=== PATIENT | male | born 1975 | race Two or more races ===

== ENCOUNTER 2016-10-03 05:27 | Emergency (ER) | payer OTHER ==
[2016-10-03 05:36] VITALS: BP 128/83; TEMP 98.6; BMI 37.2
--- NOTE | 2016-10-03 05:43 | PDOC ---
History of Present Illness - General Chief Complaint: Cold Symptoms Stated Complaint: CHILLS, NAUSEA, BODY ACHES Time Seen by Provider: 10/03/16 05:42 History Source: Patient Exam Limitations: No Limitations - History of Present Illness Initial Comments: 10/03/16 05:47 This is a 41-year-old male who comes in complaining of headache, was the body aches and fever. Patient said he has had symptoms for 2 days. Patient took ibuprofen prior to coming in and by the time he got here his fever had resolved. Patient also complaining of some sore throat and mild congestion. Patient is otherwise healthy. PAST MEDICAL HISTORY: no significant history PAST SURGICAL HISTORY: no significant history FAMILY HISTORY: no pertinant history SOCIAL HISTORY: Pt lives with family and is employed. MEDICATIONS: reviewed ALLERGIES: As per nursing notes Review of Systems General: + fevers + chills, no weakness, no weight loss HEENT: No change in vision. + sore throat,. No ear pain CardioVascular: No chest pain or shortness of breath Respiratory:No cough, or wheezing. Gastrointestinal: no nausea, vomitting, diarrhea or constipation, No rectal bleeding Genitourinary: No dysuria, hematuria, or frequency Musculoskeletal: No joint or muscle pain or swelling Neurologic: No headache, vertigo, dizziness or loss of consciousness Psychiatric: nor depression Skin: No rashes or easy bruising Endocrine: no increased thirst or abnormal weight change Allergic: no skin or latex allergy All other systems reviewed and normal Exam: General: Well-nourished well-developed individual, no acute distress HEENT: Throat: tonsils normal, erythema posterior oropharynx no exudate Neck: Supple, no meningeal signs, no lymphadenopathy Eyes::Pupils equal reactive and round, extraocular motion intact Chest: Nontender to palpation Cardiac: S1-S2 normal, regular rate and rhythm, no murmurs rubs or gallops Respiratory: Lungs clear to auscultation bilateral Abdomen: Soft, nondistended, normal bowel sounds, nontender to palpation diffusely Extremities: Warm, dry, no cyanosis, clubbing, or edema Skin: No rashes Neuro: Alert and oriented x3, nonfocal exam, grossly intact, normal gait Psych: Normal mood and affect Assessment and plan: This is a 41-year-old male who comes in complaining of 2 days of respiratory tract type symptoms. Patient had chills prior to coming in but took some ibuprofen and the time he got here his fever has broke and his temperature was normal. Patient was given a shot of Toradol for his headache. Patient had no meningeal signs and was reassured that his symptoms are viral. Patient told to alternate acetaminophen with Tylenol every 3 hours if needed for fevers and follow up with his doctor on Wednesday10/03/16 05:56 Past History - Past Medical History Allergies/Adverse Reactions: Allergies Allergy/AdvReac Type Severity Reaction Status Date / Time No Known Allergies Allergy Unverified 02/19/12 20:12 Home Medications: Ambulatory Orders NK [No Known Home Medication] 10/03/16 HTN: Yes Hypercholesterolemia: Yes - Immunization History TDAP Vaccination: No - Psycho/Social/Smoking Cessation Hx Anxiety: No Suicidal Ideation: No Smoking Status: No Smoking History: Never smoked Number of Cigarettes Smoked Daily: 0 *Physical Exam - Vital Signs Last Vital Signs Temp Pulse Resp BP Pulse Ox 98.6 F 106 H 16 128/83 96 10/03/16 05:34 10/03/16 05:34 10/03/16 05:34 10/03/16 05:34 10/03/16 05:34 *DC/Admit/Observation/Transfer Diagnosis at time of Disposition: Viral illness - Discharge Dispostion Condition at time of disposition: Stable Admit: No - Patient Instructions Additional Instructions: Alternate acetaminophen 2 extra strength tablets with ibuprofen 3 tablets every 3 hours as needed for fevers. Get plenty of rest the next couple a days;\ If you still have a fever on Wednesday follow-up with your primary care doctor. Return to the emergency department immediately with ANY new, persistent or worsening symptoms. Continue any medications as previously prescribed by your physician. You should follow up with your primary doctor as soon as possible regarding today's emergency department visit. . Please make sure your doctor reviews the results of your emergency evaluation. Thank you for coming to the Emergency Department today for your care. It was a pleasure to see you today. Please note that your evaluation is INCOMPLETE until you follow-up with your doctor.
[2016-10-03] MEDS ORDERED: KETOROLAC TROMETHAMINE 60 MG/2 ML VIAL IM ONE (05:47)
[2016-10-03] MEDS ORDERED: KETOROLAC TROMETHAMINE 60 MG/2 ML VIAL ONE (05:47)
[2016-10-03 05:54] VITALS: PULSE 100
== END 2016-10-03 05:57 | disposition home or self-care (01) ==
LOC: FER 05:27
PROC: 3E0233Z Introduction of Anti-inflammatory into Muscle, Percutaneous Approach (ICD-10-PCS; principal; 2016-10-03)
DX: B34.9 Viral infection, unspecified (principal); I10 Essential (primary) hypertension; E78.00 Pure hypercholesterolemia, unspecified
CPT/HCPCS: 96372; 99281-25

== ENCOUNTER 2018-08-25 00:01 | Emergency (ER) | payer OTHER ==
[2018-08-25 00:09] VITALS: BP 138/94; PULSE 107; TEMP 97.9; BMI 34.7
[2018-08-25] MEDS ORDERED: KETOROLAC TROMETHAMINE 60 MG/2 ML VIAL IM ONE (00:30)
--- NOTE | 2018-08-25 00:42 | PDOC ---
History of Present Illness - General Chief Complaint: Injury Stated Complaint: S/P FALL-BACK PAIN Time Seen by Provider: 08/25/18 00:07 - History of Present Illness Initial Comments: 08/25/18 00:52 The patient is a 43 year old male, with a significant PMH of HTN, HLD , hypothyroidism presents to the emergency department with hx of falling at work about 5 hours prior to presentation. The patient describes pulling a very heavy piece of equipment on a ameena at his place of work this evening. The equipment fell off the ameena and the patient slid backward, striking his lower back/ buttocks on the floor. He was able to get up and ambulate after the fall but he has had increasing pain in lower back as well as soreness in upper back, right shoulder and bilateral rib cage since the injury. The patient denies chest pain, shortness of breath, headache and dizziness. Denies fever, chills, nausea, vomit, diarrhea and constipation. Denies dysuria, frequency, urgency and hematuria. Allergies: NKA Past surgical history: Left knee meniscal repair, [employer] s/p nephrectomy as a child(trauma) Social history: No smoking/alcohol use PCP:Dhara Past History - Past Medical History Allergies/Adverse Reactions: Allergies Allergy/AdvReac Type Severity Reaction Status Date / Time No Known Allergies Allergy Unverified 02/19/12 20:12 Home Medications: Ambulatory Orders NK [No Known Home Medication] 10/03/16 COPD: No HTN: Yes Hypercholesterolemia: Yes - Immunization History TDAP Vaccination: No - Suicide/Smoking/Psychosocial Hx Smoking Status: No Smoking History: Unknown if ever smoked Have you smoked in the past 12 months: No Number of Cigarettes Smoked Daily: 0 Information on smoking cessation initiated: No Hx Alcohol Use: No Drug/Substance Use Hx: No Review of Systems - Review of Systems Able to Perform ROS?: Yes Comments:: GENERAL/CONSTITUTIONAL: No fever or chills. No weakness. HEAD, EYES, EARS, NOSE AND THROAT: No change in vision. No ear pain or discharge. No sore throat. CARDIOVASCULAR: No chest pain or shortness of breath. RESPIRATORY: No cough, wheezing, or hemoptysis. GASTROINTESTINAL: No nausea, vomiting, diarrhea or constipation. GENITOURINARY: No dysuria, frequency, or change in urination. SKIN: No rash NEUROLOGIC: No headache, vertigo, loss of consciousness, or change in strength/ sensation. ENDOCRINE: No increased thirst. No abnormal weight change. HEMATOLOGIC/LYMPHATIC: No anemia, easy bleeding, or history of blood clots. ALLERGIC/IMMUNOLOGIC: No hives or skin allergy. *Physical Exam - Vital Signs Last Vital Signs Temp Pulse Resp BP Pulse Ox 97.9 F 107 H 15 138/94 99 08/25/18 00:06 08/25/18 00:06 08/25/18 00:08/25/18 00:08/25/18 00:06 - Physical Exam Comments: GENERAL: Awake, alert, and fully oriented, in no acute distress HEAD: No signs of trauma EYES: PERRLA, EOMI, sclera anicteric, conjunctiva clear ENT: Auricles normal inspection, hearing grossly normal, nares patent, oropharynx clear without exudates. Moist mucosa NECK: Normal ROM, supple, no lymphadenopathy, JVD, or masses LUNGS: Breath sounds equal, clear to auscultation bilaterally. No wheezes, and no crackles CHEST WALL:Mild tenderness to palpation bilateral lateral aspects; no stepoffs or crepitus HEART: Regular rate and rhythm, normal S1 and S2, no murmurs, rubs or gallops ABDOMEN: Soft, nontender, normoactive bowel sounds. No guarding, no rebound. No masses EXTREMITIES: Normal range of motion, no edema. No clubbing or cyanosis. No cords, erythema, or tenderness Mild tenderness to palpation right deltoid/biceps muscles without deformity; pain in shoulder with abduction>45 degrees No bony tenderness or deformity BACK:moderate tenderness to palpation midline L2 -L5 with defects; minimal tenderness to midline T1-T2 mild tenderness to palpation bilateral flanks NEUROLOGICAL: Cranial nerves II through XII grossly intact. Normal speech, normal gait SKIN: Warm, Dry, normal turgor, no rashes or lesions noted. Progress Note - Progress Note Progress Note: Lumbosacral xrays obtained to evaluate for acute bony injury. Preliminary interpretation by me: no evidence of fracture or dislocation. Meanwhile, Toradol 60mg IM had been given for analgesia/anti-inflammatory effects. The patient reports some relief of pain after Toradol. The patient was discharged with advice to avoid strenuous activity over the next several days. He can take ibuproefen with meals as needed(patient states that OTC ibuprofen is effective for him). He is already a patient of Dr Elliott, seen for previous lower back discomfort. He should followup with him within the next 5-7 days *DC/Admit/Observation/Transfer Diagnosis at time of Disposition: Lumbosacral strain Qualifiers: Encounter type: initial encounter Qualified Code(s): S39.012A - Strain of muscle, fascia and tendon of lower back, initial encounter Right shoulder strain Qualifiers: Encounter type: initial encounter Qualified Code(s): S46.911A - Strain of unspecified muscle, fascia and tendon at shoulder and upper arm level, right arm , initial encounter Chest wall muscle strain Qualifiers: Encounter type: initial encounter Qualified Code(s): S29.011A - Strain of muscle and tendon of front wall of thorax, initial encounter - Discharge Dispostion Disposition: HOME Condition at time of disposition: Stable - Referrals Referrals: Guerrero Elliott MD [Staff Physician] - 1 week - Patient Instructions Printed Discharge Instructions: DI for Low Back Pain Additional Instructions: rest; avoid strenuous activity for the next week after 24 hours, can apply local warmth to areas of pain Motrin as needed for pain(take with food) followup with Dr Elliott in 5-7 days, especially if you have persistent lower back pain return to ER if you have persistent severe pain - Post Discharge Activity
[2018-08-25] MEDS ORDERED: KETOROLAC TROMETHAMINE 60 MG/2 ML VIAL ONE (00:46)
== END 2018-08-25 02:23 | disposition home or self-care (01) ==
LOC: FER 00:01
PROC: 3E0233Z Introduction of Anti-inflammatory into Muscle, Percutaneous Approach (ICD-10-PCS; principal; 2018-08-25)
DX: S39.012A Strain of muscle, fascia and tendon of lower back, initial encounter (principal); S46.911A Strain of unspecified muscle, fascia and tendon at shoulder and upper arm level, right arm, initial encounter; S29.011A Strain of muscle and tendon of front wall of thorax, initial encounter; W18.39XA Other fall on same level, initial encounter; Y93.89 Activity, other specified; Y92.89 Other specified places as the place of occurrence of the external cause; Y99.0 Civilian activity done for income or pay; I10 Essential (primary) hypertension; E78.5 Hyperlipidemia, unspecified; E03.9 Hypothyroidism, unspecified
CPT/HCPCS: 72100-TC-FY; 99282-25

== ENCOUNTER 2021-01-14 20:45 | Emergency (ER) | payer OTHER ==
[2021-01-14 20:56] VITALS: BP 129/94; PULSE 110; TEMP 98.1; BMI 34.2
== END 2021-01-14 22:03 | disposition home or self-care (01) ==
LOC: FER 20:45
DX: K40.90 Unilateral inguinal hernia, without obstruction or gangrene, not specified as recurrent (principal)
CPT/HCPCS: 99283-25

== ENCOUNTER 2021-05-16 04:24 | Day surgery (SDC) | payer OTHER ==
[2021-05-09 13:34] VITALS: BMI 30.8
[2021-05-16] MEDS ORDERED: BUPIVACAINE HCL/PF 0.5% (5MG/ML) 10 ML VIAL ONE ×2 (10:14→11:08)
[2021-05-16] MEDS ORDERED: PROPOFOL 20 ML ONE (10:27)
[2021-05-16] MEDS ORDERED: MIDAZOLAM HCL 2 MG/2 ML SINGLE DOSE VIAL ONE (10:27)
[2021-05-16] MEDS ORDERED: SUCCINYLCHOLINE CHLORIDE 200 MG/10 ML SYRINGE ONE (10:27)
[2021-05-16] MEDS ORDERED: ROCURONIUM BROMIDE 50 MG/5 ML SYRINGE ONE ×2 (10:27→12:42)
[2021-05-16] MEDS ORDERED: ceFAZolin SODIUM 1 GM VIAL ONE (11:24)
[2021-05-16] MEDS ORDERED: ceFAZolin SODIUM 1 GM VIAL IVPB ONE (11:25)
[2021-05-16] MEDS ORDERED: BUPIVACAINE HCL/PF 0.5% (5 MG/ML) 30 ML VIAL IJ ONE ×2 (11:36)
[2021-05-16] MEDS ORDERED: DEXAMETHASONE SOD PHOSPHATE 4 MG/1 ML VIAL ONE (11:38)
[2021-05-16] MEDS ORDERED: HYDROmorphone HCl 2 MG/ML VIAL ONE (12:26)
[2021-05-16] MEDS ORDERED: DESFLURANE GAS 240 ML BOTTLE IH ONE (13:30)
[2021-05-16] MEDS ORDERED: NEOSTIGMINE METHYLSULFATE 0.5 MG/ML - 10 ML MDV ONE (13:53)
[2021-05-16] MEDS ORDERED: oxyCODONE HCL 5 MG TABLET PO PRN (14:06)
[2021-05-16] MEDS ORDERED: ACETAMINOPHEN 325 MG TABLET (FP) PO PRN (14:06)
[2021-05-16] MEDS ORDERED: ONDANSETRON 4 MG/2 ML VIAL IVPUSH PRN (14:06)
[2021-05-16] MEDS ORDERED: LACTATED RINGERS SOLUTION 1,000 ML IV SCH (14:15)
[2021-05-16 15:51] VITALS: TEMP 98.1
[2021-05-16] MEDS ORDERED: oxyCODONE HCL 5 MG TABLET ONE (16:20)
[2021-05-16 17:01] VITALS: BP 106/74; PULSE 100
== END 2021-05-16 18:00 | disposition home or self-care (01) ==
LOC: JASU-SURG 04:24
PROVIDERS: ATTEND Surgery
PROC: 8E0W4CZ Robotic Assisted Procedure of Trunk Region, Percutaneous Endoscopic Approach (ICD-10-PCS; 2021-05-16)
PROC: 0YU54JZ Supplement Right Inguinal Region with Synthetic Substitute, Percutaneous Endoscopic Approach (ICD-10-PCS; principal; 2021-05-16 10:30)
DX: K40.90 Unilateral inguinal hernia, without obstruction or gangrene, not specified as recurrent (principal); E11.9 Type 2 diabetes mellitus without complications
CPT/HCPCS: 49650; S2900; 82962; 94760